=== PATIENT | female | born 1980 | race Caucasian/White ===

== ENCOUNTER → 2017-04-10 14:24 | Outpatient (CLI) | payer OTHER ==
[2016-02-16 07:30] VITALS: BMI 22.3
[~2017-04-10 14:24] MED LIST: PEPCID20 MG PO
== END | disposition home or self-care (01) ==
LOC: D.MAMMO 14:24
DX: Z12.31 Encounter for screening mammogram for malignant neoplasm of breast (principal)

== ENCOUNTER → 2017-04-27 15:57 | Outpatient (CLI) | payer OTHER ==
[2016-02-16 07:30] VITALS: BMI 22.3
== END | disposition home or self-care (01) ==
LOC: D.US 04-26 11:00
DX: N18.2 Chronic kidney disease, stage 2 (mild) (principal)

== ENCOUNTER 2018-08-15 05:45 | Day surgery (SDC) | payer BC ==
[~2018-08-15] VITALS: Ht 162.6 cm; Wt 68.0 kg
[~2018-08-15 05:45] MED LIST changes: +CELEXA10 MG PO
[2018-08-15 06:53] VITALS: BP 96/66; Ht 162.6 cm; Wt 68.0 kg
[2018-08-15 07:27] LABS: HEMATOCRIT 38.2 % (36.0-48.0); MCH 30.7 pg (26.0-34.0); MCV 90.3 fL (80.0-100.0); MEAN PLATELET VOLUME 10.7 fL (7.4-10.4); RBC 4.23 10x6/uL (4.00-5.40); RDW 13.3 % (11.5-14.5); WBC 6.9 10x3/uL (4.8-10.8)
--- NOTE | 2018-08-15 08:45 | NUR ---
REC'D FROM SURGERY. FAMILY AT BEDSIDE. WALTER MAJalen SERVED.. EXPLAINED SHE NEEDS TO TURN BACK AND FORTH TO MOVE THE MEDICATION AROUND WHILE SHE IS WAITING TO URINATE. VERBALIZED UNDERSTANDING.
--- NOTE | 2018-08-15 08:55 | NUR ---
AMBUALTED TO THE BATHROOM AND VOIDED WITHOUT DIFFICULTY.
--- NOTE | 2018-08-15 09:15 | NUR ---
TOLERATED FL TRAY. IV DC'D WITH CATHETER INTACT. WRITTEN AND VERBAL DC INST. GIVEN TO PT. VERBALIZED UNDERSTANDING.
--- NOTE | 2018-08-15 09:20 | NUR ---
DC'D HOME WITH FAMILY VIA PRIVATE VEHICLE. TAKEN TO VEHICLE VIA WC. STABLE AT TIME OF DC.
--- NOTE | 2018-08-15 09:56 | OP ---
PATIENT NAME: BARBARA KOO MEDICAL RECORD: [id number] :76 LOCATION:[facility] ADMISSION DATE: SURGEON: RAFAL WEBSTER MD DATE OF OPERATION: 08/15/2018 SURGEON: Rafal Webster MD ANESTHESIA: TIVA by Stephen Hsu CRNA. DIAGNOSIS: Interstitial cystitis. PROCEDURES: Cystoscopy, hydrodistention to 500 mL, and Rimso instillation. FINDINGS: Single ureteral orifices bilaterally. No bladder tumors. Diffuse bladder inflammation with Hunner's ulcers being present. BLOOD LOSS: None. CLINICAL HISTORY: This is a 38-year-old female, who has a previous history of interstitial cystitis. It was treated elsewhere with cystoscopy and hydrodistention periodically. She has an ongoing flare up at the moment. She comes today to have cystoscopy, hydrodistention, and intravesical Rimso treatment. SHE IS ALLERGIC TO PENICILLIN. She was given Levaquin IV sr risk management consultant to the OR. DESCRIPTION OF PROCEDURE: The patient was given IV sedation. She was then placed in the dorsal lithotomy position and prepped and draped. A 17-Trinidadian cystoscope was used for visualization. Findings were as outlined above. The bladder was then filled to 500 mL and the volume was held for 1 minute. The bladder was then emptied through the cystoscope sheath and then the scope was removed. A 14-Trinidadian red rubber catheter was inserted into the urethra and 50 mL of Rimso solution was instilled into the bladder through the catheter. The catheter was then removed, leaving the solution in the bladder. The patient will hold the solution in the bladder for about 15 minutes and then void it out. She will be seen in 2 weeks followup for treatment #2 if needed. TRANSINT:[id number] Voice Confirmation ID: [id number] DOCUMENT ID: [id number] RAFAL WEBSTER MD at 0956 CC: [id number] DICTATION DATE: 08/15/18 0850 MORTGAGE PROFESSIONAL: 08/15/18 0946 [place] [id number] [place] [id number]
== END 2018-08-15 09:20 | disposition home or self-care (01) ==
LOC: D.OPS 05:45 → D.PAN 07:50 → D.OPS 07:50 → D.PAN 08:00 → D.OPS 08:00
PROVIDERS: Anesthesiology
DX: N30.10 Interstitial cystitis (chronic) without hematuria (principal); Z88.0 Allergy status to penicillin; Z01.812 Encounter for preprocedural laboratory examination

== ENCOUNTER → 2018-08-30 13:02 | Outpatient (CLI) | payer BC ==
[2018-08-15 06:53] VITALS: BMI 25.8
== END | disposition home or self-care (01) ==
LOC: D.CT 13:02
DX: I70.1 Atherosclerosis of renal artery (principal)

== ENCOUNTER 2019-01-07 08:00 | Outpatient (CLI) | payer BC ==
[2018-08-15 06:53] VITALS: BMI 25.8
== END 2019-01-07 16:28 | disposition home or self-care (01) ==
LOC: D.MAMMO 08:00
PROVIDERS: ATTEND Family Medicine
DX: Z12.31 Encounter for screening mammogram for malignant neoplasm of breast (principal)

== ENCOUNTER → 2019-12-15 21:09 | Outpatient (CLI) | payer BC ==
[2018-08-15 06:53] VITALS: BMI 25.8
== END | disposition home or self-care (01) ==
LOC: D.LABREF 21:09
PROVIDERS: ATTEND Urology
DX: R82.90 Unspecified abnormal findings in urine (principal); R31.9 Hematuria, unspecified

== ENCOUNTER → 2020-11-24 12:59 | Outpatient (CLI) | payer BC ==
[2018-08-15 06:53] VITALS: BMI 25.8
--- NOTE | 2020-11-26 08:32 | ST ---
PATIENT:BARBARA KOO MEDICAL RECORD: [id number] SEX: F LOCATION:[facility] ORDER #: ADMISSION DATE: 11/24/20 AGE OF PATIENT: 40 REFERRING PHYSICIAN: INTERPRETING PHYSICIAN: RUBIA GUIDRY MD DATE OF SERVICE: 11/24/2020 TREADMILL STRESS TEST Baseline ECG is normal. Exercised for 8 minutes 17 seconds on Adolfo protocol. Maximum heart rate 151 beats per minute greater than 85% max predicted. No ECG changes of ischemia. No symptom of ischemia. Normal blood pressure response to exercise. No arrhythmias noted. Good exercise tolerance for age. TRANSINT:[id number] Voice Confirmation ID: [id number] DOCUMENT ID: [id number] RUBIA GUIDRY MD at 0832 CC: [id number] DICTATION DATE: 11/25/20 145 BLENDING TANK TENDER HELPER: 11/26/20 0201 DEP CLI 11/24/20 [place] [id number] [place] [address]
== END | disposition home or self-care (01) ==
LOC: D.HCCECHO 12:59
PROVIDERS: ATTEND Internal Medicine Interventional Cardiology
DX: I49.9 Cardiac arrhythmia, unspecified (principal); Z03.89 Encounter for observation for other suspected diseases and conditions ruled out